=== PATIENT | female | born 1940 | race Caucasian/White ===

== ENCOUNTER 2019-01-10 15:45 | Emergency (ER) | payer MEDICARE, OTHER ==
[~2019-01-10] VITALS: Ht 167.6 cm; Wt 63.6 kg
[~2019-01-10 15:45] MED LIST: ACET-2119 PO; ATOR40TA PO; FAMO-128 PO; MULT1TAB74 PO; MYCO250C46 PO; NOR5T PO; ONDA4TAB12 PO; PRED5TAB PO; [UNRECOGNIZED DRUG - CODE] PO
--- NOTE | 2019-01-10 17:20 | NUR ---
LAST BM THURSDAY TOOK 2 COLACE, 1 DUCOLAX SUPPOSITORY, 1 ORAL STIMULANT PILL, 1 ENEMA
[2019-01-10] MEDS ORDERED: methylnaltrexone br 12mg/0.6ml inj***SubQ only SQ ONE (17:40)
[2019-01-10 18:16] VITALS: BP 162/74
== END 2019-01-10 18:17 | disposition home or self-care (01) ==
LOC: ER 15:45
DX: K59.03 Drug induced constipation (principal); T40.605A Adverse effect of unspecified narcotics, initial encounter; Y92.89 Other specified places as the place of occurrence of the external cause; E78.00 Pure hypercholesterolemia, unspecified; I10 Essential (primary) hypertension; Z88.5 Allergy status to narcotic agent; Z79.899 Other long term (current) drug therapy; Z98.890 Other specified postprocedural states
CPT/HCPCS: 74018; 96372; 99284

== ENCOUNTER 2019-09-24 17:40 | Emergency (ER) | payer MEDICARE, OTHER ==
[~2019-09-24] VITALS: Ht 165.1 cm; Wt 61.8 kg
[2019-09-24] MEDS ORDERED: HYDROcodone/acetaminophen 10/325mg tab PO STA (17:47)
[2019-09-24] MEDS ORDERED: fentaNYL/PF 50MCG/1 ML 2ML syringe IV ONE (18:45)
--- NOTE | 2019-09-24 18:45 | NUR ---
PATIENT REPORTS 8 RIGHT WRIST PAIN "WAS A TEN BEFORE THE [place]CO". PATIENT ALMOST HYPER ALERT WITH HER SON AT BEDSIDE, SPOKE WITH MD WILLAMS, VERBAL ORDER FOR IM FENTANYL RECEIVED
--- NOTE | 2019-09-24 19:20 | NUR ---
RIGHT WRIST SWOLLEN AND BRUISED CAP REFILL TO RIGHT FINGERS 2 SECONDS, STRONG BILATERAL RADIAL PULSES AND SENSATION TO BOTH HANDS WNL
[2019-09-24] MEDS ORDERED: HYDR-4383 PO (19:58)
[2019-09-24] MEDS ORDERED: SENN-162 PO (19:58)
[2019-09-24 20:25] VITALS: BP 130/69
== END 2019-09-24 20:25 | disposition home or self-care (01) ==
LOC: ER 17:40
DX: S52.591A Other fractures of lower end of right radius, initial encounter for closed fracture (principal); E78.00 Pure hypercholesterolemia, unspecified; I10 Essential (primary) hypertension; Z98.890 Other specified postprocedural states; Z88.5 Allergy status to narcotic agent; Z79.899 Other long term (current) drug therapy; W01.0XXA Fall on same level from slipping, tripping and stumbling without subsequent striking against object, initial encounter; Y93.89 Activity, other specified; Y92.89 Other specified places as the place of occurrence of the external cause; Y99.8 Other external cause status
CPT/HCPCS: 29125; 73110; 93005; 96374; 99284; J3010

== ENCOUNTER 2019-09-26 17:35 | Emergency (ER) | payer MEDICARE, OTHER ==
[~2019-09-26] VITALS: Ht 165.1 cm; Wt 61.0 kg
[~2019-09-26 17:35] MED LIST changes: +HYDR-4383 PO; +SENN-162 PO
[2019-09-26 17:42] VITALS: BP 124/74
== END 2019-09-26 18:47 | disposition home or self-care (01) ==
LOC: ER 17:36
DX: S52.591D Other fractures of lower end of right radius, subsequent encounter for closed fracture with routine healing (principal); E78.00 Pure hypercholesterolemia, unspecified; I10 Essential (primary) hypertension; Z98.890 Other specified postprocedural states; Z88.5 Allergy status to narcotic agent; Z79.899 Other long term (current) drug therapy; W18.39XD Other fall on same level, subsequent encounter
CPT/HCPCS: 29125; 99284

== ENCOUNTER 2019-09-29 11:34 | Outpatient (CLI) | payer MEDICARE, OTHER | END 2019-09-29 12:55 | disposition home or self-care (01) | LOC: ORTHO 11:34 | PROVIDERS: ATTEND Orthopaedic Surgery | DX: S52.591D Other fractures of lower end of right radius, subsequent encounter for closed fracture with routine healing (principal); W19.XXXD Unspecified fall, subsequent encounter | CPT/HCPCS: 73110; A4590; G0463 ==

== ENCOUNTER 2019-10-18 14:58 | Outpatient (CLI) | payer MEDICARE, OTHER | END 2019-10-18 16:45 | disposition home or self-care (01) | LOC: ORTHO 14:58 | PROVIDERS: ATTEND Orthopaedic Surgery | DX: S52.591D Other fractures of lower end of right radius, subsequent encounter for closed fracture with routine healing (principal); L84 Corns and callosities; M19.031 Primary osteoarthritis, right wrist; X58.XXXD Exposure to other specified factors, subsequent encounter | CPT/HCPCS: 73110; G0463 ==

== ENCOUNTER 2019-11-15 15:11 | Outpatient (CLI) | payer MEDICARE, OTHER | END 2019-11-15 16:15 | disposition home or self-care (01) | LOC: ORTHO 15:11 | PROVIDERS: ATTEND Orthopaedic Surgery | DX: S52.591D Other fractures of lower end of right radius, subsequent encounter for closed fracture with routine healing (principal); I10 Essential (primary) hypertension; L84 Corns and callosities; M19.031 Primary osteoarthritis, right wrist; Z88.5 Allergy status to narcotic agent; X58.XXXD Exposure to other specified factors, subsequent encounter | CPT/HCPCS: 73110; G0463 ==